=== PATIENT | male | born 1970 | race African-American/Black ===

== ENCOUNTER 2021-01-19 18:44 | Emergency (ER) | payer BC, OTHER ==
[~2021-01-19] VITALS: Ht 185.4 cm; Wt 80.0 kg
[2021-01-19] MEDS ORDERED: LORAZEPAM 2MG/ML CPJ IV STA (19:33)
[2021-01-19] MEDS ORDERED: SODIUM CHLORIDE 0.9% 1,000 ML IV ONE (19:45)
[2021-01-19 20:20] LABS: BASOPHILS % 0.6 % (0.0-2.0); EOSINOPHILS % 0.2 % (0.0-5.0); HEMATOCRIT. 43.8 % (42.0-52.0); HEMOGLOBIN. 14.9 g/dL (14.0-18.0); LYMPHOCYTES % 25.6 % (20.0-50.0); MEAN CORPUSCULAR VOLUME 85.3 fL (80.0-94.0); MEAN PLATELET VOLUME 7.5 fl (7.4-10.4); MONOCYTES % 12.2 % (2.0-8.0); NEUTROPHILS % 61.4 % (40.0-76.0); PLATELET 401 x1000/uL (130-400); RED BLOOD CELL COUNT 5.13 mill/uL (4.7-6.1); RED CELL DISTRIBUTION WIDTH 13.3 % (11.6-14.6)
[2021-01-19 20:24] LABS: CHLORIDE 108 mEq/L (98-107)
[2021-01-19 20:32] LABS: ETHANOL BLOOD < 10 mg/dL
[2021-01-19 23:26] LABS: CLARITY URINE TURBID (CLEAR); COLOR URINE YELLOW (YELLOW); KETONES URINE 1+ (NEGATIVE); LEUKOCYTE ESTERASE URINE NEGATIVE (NEGATIVE); NITRITE URINE NEGATIVE (NEGATIVE); OCCULT BLOOD URINE NEGATIVE (NEGATIVE); PH URINE 8.5 (4.5-8.0); PROTEIN URINE NEGATIVE (NEGATIVE); SPECIFIC GRAVITY URINE 1.019 (1.005-1.030)
[2021-01-19 23:36] LABS: *AMPHETAMINES SCREEN URINE NEGATIVE (NEGATIVE); *BARBITURATES SCREEN URINE NEGATIVE (NEGATIVE); *BENZODIAZEPINES SCREEN URINE NEGATIVE (NEGATIVE); *COCAINE SCREEN URINE NEGATIVE (NEGATIVE)
[2021-01-19 23:37] LABS: CANNABINOID URINE SCREEN PRESUMTIVE POSITIVE (NEGATIVE); METHADONE URINE SCREEN NEGATIVE (NEGATIVE); OPIATES URINE SCREEN NEGATIVE (NEGATIVE); PHENCYCLIDINE URINE SCREEN NEGATIVE (NEGATIVE)
[2021-01-19] MEDS ORDERED: HYDR-3782 MT (23:47)
[2021-01-20 00:30] VITALS: BP 158/100
== END 2021-01-20 00:53 | disposition home or self-care (01) ==
LOC: ER 18:44
DX: F41.0 Panic disorder [episodic paroxysmal anxiety] (principal); F19.939 Other psychoactive substance use, unspecified with withdrawal, unspecified; R07.89 Other chest pain; M54.9 Dorsalgia, unspecified; G89.29 Other chronic pain; G62.9 Polyneuropathy, unspecified; I10 Essential (primary) hypertension; E87.6 Hypokalemia; F12.90 Cannabis use, unspecified, uncomplicated
CPT/HCPCS: 36415; 71045; 80053; 80305; 80307; 80320; 80329; 81003; 84484; 85025; 85379; 93005; 96361; 96374; 99285; J2060; J7030; Z7610; G0480

== ENCOUNTER 2021-02-08 10:40 | Emergency (ER) | payer OTHER ==
[~2021-02-08] VITALS: Ht 175.3 cm; Wt 82.0 kg
[~2021-02-08 10:40] MED LIST: HYDR-3782 MT
[2021-02-08] MEDS ORDERED: SODIUM CHLORIDE 0.9% 1,000 ML IV ONE (11:45)
[2021-02-08] MEDS ORDERED: LORAZEPAM 2MG/ML CPJ IV ONE ×2 (11:45→13:00)
[2021-02-08 12:10] LABS: BASOPHILS % 0.7 % (0.0-2.0); EOSINOPHILS % 0.1 % (0.0-5.0); HEMATOCRIT. 45.5 % (42.0-52.0); MEAN CORPUSCULAR VOLUME 85.4 fL (80.0-94.0); MEAN PLATELET VOLUME 7.4 fl (7.4-10.4); MONOCYTES % 8.5 % (2.0-8.0); NEUTROPHILS % 67.7 % (40.0-76.0); PLATELET 490 x1000/uL (130-400); RED BLOOD CELL COUNT 5.33 mill/uL (4.7-6.1); RED CELL DISTRIBUTION WIDTH 13.6 % (11.6-14.6)
[2021-02-08 12:17] LABS: CHLORIDE 106 mEq/L (98-107)
[2021-02-08 12:21] LABS: ETHANOL BLOOD < 10 mg/dL
[2021-02-08 12:29] LABS: *AMPHETAMINES SCREEN URINE NEGATIVE (NEGATIVE); *BARBITURATES SCREEN URINE NEGATIVE (NEGATIVE); *BENZODIAZEPINES SCREEN URINE NEGATIVE (NEGATIVE); *COCAINE SCREEN URINE NEGATIVE (NEGATIVE); METHADONE URINE SCREEN NEGATIVE (NEGATIVE); OPIATES URINE SCREEN PRESUMTIVE POSITIVE (NEGATIVE)
[2021-02-08 12:30] LABS: CANNABINOID URINE SCREEN PRESUMTIVE POSITIVE (NEGATIVE); PHENCYCLIDINE URINE SCREEN NEGATIVE (NEGATIVE)
[2021-02-08] MEDS ORDERED: LORA-250 MT (14:33)
[2021-02-08 15:40] VITALS: BP 128/97
== END 2021-02-08 13:30 | disposition home or self-care (01) ==
LOC: ER 10:40
DX: F41.9 Anxiety disorder, unspecified (principal); F17.200 Nicotine dependence, unspecified, uncomplicated; F12.10 Cannabis abuse, uncomplicated; R06.4 Hyperventilation; I10 Essential (primary) hypertension; Z90.49 Acquired absence of other specified parts of digestive tract; Z88.8 Allergy status to other drugs, medicaments and biological substances
CPT/HCPCS: 36415; 71045; 80053; 80305; 80320; 83880; 84484; 85025; 93005; 96361; 96374; 96376; 99285; J2060; J7030; Z7610; G0480

== ENCOUNTER 2023-09-10 11:43 | Emergency (ER) | payer SELFPAY ==
[~2023-09-10] VITALS: Ht 172.7 cm; Wt 73.0 kg
[~2023-09-10 11:43] MED LIST changes: +LORA-250 MT
[2023-09-10 11:45] VITALS: O2SAT 99
[2023-09-10] MEDS ORDERED: KETOROLAC 60MG/2ML VIAL IM ONE (12:15)
[2023-09-10] MEDS ORDERED: MORPHINE SULFATE 10 MG/ML CPJ IM ONE (14:45)
[2023-09-10] MEDS ORDERED: MORPHINE SULFATE 10 MG/ML CPJ IM NR (15:30)
[2023-09-10] MEDS ORDERED: CYCL10TA21 MT (16:24)
[2023-09-10] MEDS ORDERED: IBUP-2029 MT (16:24)
[2023-09-10] MEDS ORDERED: T3 PO (16:24)
[2023-09-10 16:50] VITALS: BP 142/79; PULSE 79; RESP 18; TEMP 98.3
== END 2023-09-10 17:16 | disposition home or self-care (01) ==
LOC: ER 11:52
DX: M54.50 Low back pain, unspecified (principal); M48.061 Spinal stenosis, lumbar region without neurogenic claudication; F41.9 Anxiety disorder, unspecified; I10 Essential (primary) hypertension; F12.10 Cannabis abuse, uncomplicated; Z90.49 Acquired absence of other specified parts of digestive tract
CPT/HCPCS: 72131; 96372; 99285; J1885; J2270; Z7610

== ENCOUNTER 2025-03-21 21:21 | Emergency (ER) | payer SELFPAY ==
[~2025-03-21] VITALS: Ht 175.3 cm; Wt 75.0 kg
[~2025-03-21 21:21] MED LIST changes: +CYCL10TA21 MT; +IBUP-2029 MT; +T3 PO
[2025-03-21 21:39] VITALS: BP 169/98; TEMP 36.9; O2SAT 100
[2025-03-21 21:44] VITALS: PULSE 92; RESP 16; O2SAT 100
[2025-03-21] MEDS ORDERED: ACETAMINOPHEN 325MG TABLET PO STA (22:45)
[2025-03-21] MEDS ORDERED: LACTULOSE 20G/30ML UDC PO ONE (22:45)
== END 2025-03-21 22:50 | disposition left against medical advice (07) ==
LOC: ER 21:21
DX: K59.00 Constipation, unspecified (principal); R10.9 Unspecified abdominal pain; Z53.21 Procedure and treatment not carried out due to patient leaving prior to being seen by health care provider